=== PATIENT | female | born 1990 ===

== ENCOUNTER 2017-03-29 12:46 | Emergency (ER) | payer SELFPAY ==
[2017-03-29 13:34] VITALS: BP 114/75
[2017-03-29 13:53] LABS: Basophils % (Auto) 0.5 % (0.0-1.8); Hematocrit 40.9 % (30.3-42.9); Mean Corpuscular HGB Conc 32 % (30-34); Mean Corpuscular Hemoglobin 29 pg (28-32); Mean Corpuscular Volume 90 fl (79-97); Platelet Count 236 K/mm3 (140-440); Red Blood Count 4.56 M/mm3 (3.65-5.03); Red Cell Distribution Width 13.1 % (13.2-15.2); White Blood Count 11.4 K/mm3 (4.5-11.0)
[2017-03-29 14:10] LABS: Alanine Aminotransferase 18 units/L (7-56); Albumin/Globulin Ratio 1.2 %; Alkaline Phosphatase 48 units/L (35-129); Anion Gap 19 mmol/L; Blood Urea Nitrogen 8 mg/dL (7-17); Calcium 8.7 mg/dL (8.4-10.2); Carbon Dioxide 20 mmol/L (22-30); Chloride 105.5 mmol/L (98-107); Glucose 91 mg/dL (65-100); Lipase 11 units/L (13-60); Potassium 4.4 mmol/L (3.6-5.0); Sodium 140 mmol/L (137-145); Total Protein 7.4 g/dL (6.3-8.2)
[2017-03-29 17:12] LABS: Bilirubin,Urine NEG (Negative); Blood,Urine LG (Negative); Ketones,Urine TR mg/dL (Negative); Leukocyte Esterase,Urine NEG (Negative); Mucus,Urine 2+ /HPF; Nitrite,Urine NEG (Negative); Protein,Urine <15 mg/dL mg/dL (Negative); Urobilinogen,Urine < 2.0 mg/dL (<2.0); WBC,Urine < 1.0 /HPF (0.0-6.0)
== END 2017-03-29 16:15 | disposition left against medical advice (07) ==
LOC: ED 12:46
DX: R10.9 Unspecified abdominal pain (principal); Z53.21 Procedure and treatment not carried out due to patient leaving prior to being seen by health care provider
CPT/HCPCS: 36415; 80053; 81001; 83690; 84703; 85025